=== PATIENT | male | born 1985 | race Native Hawaiian/Other Pacific Islander ===

== ENCOUNTER 2018-09-08 17:07 | Emergency (ER) | payer BC ==
[2018-09-08] MEDS ORDERED: FLUORESCEIN SODIUM 1 STRIP STRIP ONE (17:20)
[2018-09-08] MEDS ORDERED: TETRACAINE HCL 0.5% 4 ML OPHTH SOLN ONE (17:21)
== END 2018-09-08 17:40 | disposition home or self-care (01) ==
LOC: EDH 17:07
DX: S05.01XA Injury of conjunctiva and corneal abrasion without foreign body, right eye, initial encounter (principal); Z98.890 Other specified postprocedural states; Z88.5 Allergy status to narcotic agent; W22.8XXA Striking against or struck by other objects, initial encounter; Y93.89 Activity, other specified; Y92.89 Other specified places as the place of occurrence of the external cause; Y99.8 Other external cause status